=== PATIENT | female | born 1960 | race Caucasian/White ===

== ENCOUNTER 2019-08-20 05:33 | Day surgery (SDC) ==
--- NOTE | 2019-08-08 17:35 | EKG Report ---
Test Performed on : 08/08/2019 5:17:39 PM Test Reason : PAT Blood Pressure : / mmHG Vent. Rate : 081 BPM Atrial Rate : 081 BPM P-R Int : 134 ms QRS Dur : 088 ms QT Int : 344 ms P-R-T Axes : 074 071 042 degrees QTc Int : 399 ms Normal sinus rhythm. Normal ECG When compared with ECG of 26-JUL-2018 08:32, No significant change was found Confirmed by Suman TERRELL, Kee Jimenez ([id number]) on 08/10/2019 6:58:31 AM
[2019-08-08 17:47] LABS: URINE SOURCE CLEAN CATCH
[2019-08-08 17:49] LABS: BILIRUBIN URINE NEGATIVE (NEGATIVE); BLOOD URINE TRACE (NEGATIVE); COLOR YELLOW; GLUCOSE URINE NEGATIVE (NEGATIVE); KETONE URINE NEGATIVE (NEGATIVE); LEUKOCYTES URINE MODERATE (NEGATIVE); NITRITE URINE NEGATIVE (NEGATIVE); PROTEIN URINE NEGATIVE (NEGATIVE); SP GRAVITY URINE 1.013; TURBIDITY URINE CLEAR (CLEAR); UR EPITHELIAL CELLS <10 /HPF (<10); URINE BACTERIA NEGATIVE /HPF; URINE RBC <10 /HPF (<10); UROBILINOGEN URINE NORMAL (NORMAL)
[2019-08-08 17:51] LABS: BASO# 0.03 X1000 (0.0-0.2); BASO% 0.5 % (0.0-0.8); EOS# 0.17 X1000 (0.0-0.7); EOS% 2.8 % (0.0-10.0); HEMATOCRIT 39.7 % (37.0-47.0); HEMOGLOBIN 12.9 g/dL (12.0-16.0); LYMPH% 24.8 % (20.5-51.1); MCH 31.3 PG (27-31); MCHC 32.5 g/dL (33-37); MCV 96.4 FL (81-99); MONO# 0.51 X1000 (0.11-0.59); MONO% 8.4 % (1.7-9.3); MPV 9.7 FL (7.4-10.4); NEUT# 3.84 X1000 (1.4-6.5); NEUT% 63.5 % (42.2-75.2); PLT 272 X1000 (130-400); RBC 4.12 XMIL (4.2-5.4); RDW 12.3 % (11.5-14.5); WBC 6.05 X1000 (4.8-10.8)
[2019-08-08 17:55] LABS: INR 0.95; PROTIME 12.8 Seconds (11.0-16.0)
[2019-08-08 17:56] LABS: PTT 25.9 Seconds (22.3-41.8)
[2019-08-08 18:11] LABS: AGAP 10; ALBUMIN 4.3 g/dL (3.5-5.0); BUN 23 mg/dL (8-22); CALCIUM 9.8 mg/dL (8.8-10.2); CHLORIDE 101 mmol/L (98-107); COSMO 279; CREATININE 0.7 mg/dL (0.5-0.9); ESTIMATED GFR > 60; GLUCOSE 99 mg/dL (70-104); POTASSIUM 3.7 mmol/L (3.5-5.1); SODIUM 138 mmol/L (136-145); TCO2 27 mmol/L (25-35)
[2019-08-20] MEDS ORDERED: REGLAN ONE (06:04)
[2019-08-20] MEDS ORDERED: COLACE ONE (06:04)
[2019-08-20] MEDS ORDERED: PEPCID ONE (06:04)
[2019-08-20] MEDS ORDERED: LYRICA ONE ×2 (06:05→06:18)
[2019-08-20] MEDS ORDERED: KEFZOL 1 GM/D5W 1 GM/50 ML IVPB ONE ×2 (06:05→06:06)
[2019-08-20] MEDS ORDERED: LR 1,000 ML ONE (06:05)
[2019-08-20] MEDS ORDERED: XYLOCAINE-MPF 2% ONE (06:38)
[2019-08-20] MEDS ORDERED: DIPRIVAN 1% ONE ×4 (06:38→08:39)
[2019-08-20] MEDS ORDERED: DURAMORPH ONE (06:39)
[2019-08-20] MEDS ORDERED: TORADOL ONE (06:39)
[2019-08-20] MEDS ORDERED: VANCOMYCIN ONE (06:39)
[2019-08-20] MEDS ORDERED: SODIUM CHLORIDE 0.9% ONE (06:39)
[2019-08-20] MEDS ORDERED: EXPAREL 1.3% ONE (06:39)
[2019-08-20] MEDS ORDERED: MARCAINE 0.25% PF ONE (06:39)
[2019-08-20] MEDS ORDERED: QUELICIN (DOSE) ONE (06:43)
[2019-08-20] MEDS ORDERED: FENTANYL ONE (07:03)
[2019-08-20] MEDS: CYKLOKAPRON 1,000 MG/NS 2,000 MG/200 ML IVPB ONE ×2 (07:15→08:36)
[2019-08-20 08:10] LABS: URINE SOURCE CATH
[2019-08-20 08:13] LABS: BILIRUBIN URINE NEGATIVE (NEGATIVE); BLOOD URINE NEGATIVE (NEGATIVE); COLOR YELLOW; GLUCOSE URINE NEGATIVE (NEGATIVE); KETONE URINE NEGATIVE (NEGATIVE); LEUKOCYTES URINE NEGATIVE (NEGATIVE); NITRITE URINE NEGATIVE (NEGATIVE); PH URINE 5.5; PROTEIN URINE NEGATIVE (NEGATIVE); SP GRAVITY URINE 1.022; TURBIDITY URINE CLEAR (CLEAR); UROBILINOGEN URINE NORMAL (NORMAL)
[2019-08-20 08:14] LABS: UR EPITHELIAL CELLS <10 /HPF (<10); URINE BACTERIA NEGATIVE /HPF; URINE RBC <10 /HPF (<10); URINE WBC <10 /HPF (<10)
[2019-08-20] MEDS ORDERED: DECADRON ONE (08:42)
[2019-08-20] MEDS ORDERED: ZOFRAN ONE (08:42)
[2019-08-20] MEDS ORDERED: OFIRMEV 1000 MG/ISOTONIC SOLN 1,000 MG/100 ML BOTTLE ONE (08:48)
[2019-08-20] MEDS ORDERED: EPHEDRINE ONE (09:03)
--- NOTE | 2019-08-20 09:37 | OPERATIVE NOTE ---
PROCEDURE DATE: 08/20/2019 PREOPERATIVE DIAGNOSIS: Right knee degenerative joint disease. POSTOPERATIVE DIAGNOSIS: Right knee degenerative joint disease. PROCEDURE PERFORMED: Right total knee arthroplasty using a [employer] size 4 femoral component, a size 4 tibial base plate, an 11 mm articular insert, and a 32 mm patellar component. ANESTHESIA: Spinal. SURGEON: Urbano Martinez M.D. TERRAPIN FISHER: CHAD Perez. SECOND TERRAPIN FISHER: CHAD Nugent. COMPLICATIONS: None. BLOOD LOSS: Minimal. TOURNIQUET TIME: Approximately an hour. DESCRIPTION OF PROCEDURE: The patient was brought to the operative suite and placed in the supine position. After successful administration of spinal anesthesia, a well-padded tourniquet was placed on the right proximal thigh, and the right lower extremity was prepped and draped in the usual sterile fashion. The leg was exsanguinated. Tourniquet was insufflated to 350 torr. A longitudinal incision was made beginning at the superior pole of the patella, and extending distally to the tibial tuberosity. The medial arthrotomy was then made with the medial capsule elevated off the medial tibial plateau. The ACL, PCL, medial meniscus, and lateral meniscus were excised. A drill was entered into the distal femur. Intramedullary guide was placed. Distal cutting block was pinned into place. Distal cut was made with oscillating saw. The marginal osteophytes were removed with a rongeur. Attention was directed to the tibia. A drill was entered in the center of the tibia. Intramedullary guide was placed. Alignment checked with drop corazon, referencing off the anterior cortex tibia and the second ray of the foot, and taking 4 mm off the low side of the tibia, which in this case was medially. The tibial cutting block was pinned into place. The articular surface of the tibial plateau was removed with the oscillating saw. Marginal osteophytes were removed with a rongeur. Extension gap was balanced at 11 mm. Therefore, the flexion gap was set to 20 mm, and then once the rotation was set, the femur was sized to a size 4. A size 4 guide was [address]. The anterior cuts, chamfer cuts, and posterior condylar cuts were made with the oscillating saw. Marginal osteophytes were removed with a rongeur. Box cutting block was pinned into place. Box cut was made with box osteotome and oscillating saw. Posterior condylar osteophytes were removed with the curved osteotome and rongeur. Hemostasis was obtained with electrocautery. Attention was then directed to the tibia. The tibia was sized to a size 4. A size 4 guide was used to drill the pin punch. The tibial trial, femoral trial, and 11 mm articular insert were placed and taken through range of motion and found to have excellent alignment, balancing, and range of motion. Attention was directed to the patella. Then, 9 mm of the articular surface of the patella were removed with the oscillating saw. The patella sized to size 32. A size 32 guide was used to drill peg holes. The lateral facet was chamfered 30 to 45 degrees. Patella trial was placed, taken through range of motion, and found have excellent patella tracking. All trials were then removed. The knee was copiously irrigated and dried, being certain all bone debris was removed. The tibial component, femoral component, and patellar component were cemented into place, excess cement being removed with a [place]. Once the cement had hardened, excess cement was again removed with an osteotome. The knee was again copiously irrigated and dried, being certain all bone and cement debris were removed. The trial articular insert was removed. The tourniquet was deflated. Hemostasis was obtained with electrocautery. The knee was copiously infiltrated with Exparel, including posterior capsule, anterior capsule, medial and lateral collateral ligaments, anterior musculature, and subcutaneous tissue. The definitive 11 mm articular insert was locked into place. The medial arthrotomy was closed with #1 Vicryl. The skin edge was approximated with 2-0 Vicryl. The skin was closed with 2-0 Vicryl and then Prineo. A sterile dressing was applied. The patient tolerated the procedure well without complications. At the end of the procedure, all counts were correct. The patient was transferred to the recovery room in stable condition. cc: Urbano Martinez MD
[2019-08-20] MEDS ORDERED: NS 1,000 ML ONE (10:00)
[2019-08-20] MEDS ORDERED: OXY IR PO PRN ×2 (10:45)
[2019-08-20] MEDS ORDERED: ZOFRAN IV PRN (10:45)
[2019-08-20] MEDS ORDERED: ZOFRAN ODT PO PRN (10:45)
[2019-08-20] MEDS ORDERED: NS 1,000 ML IV SCH (10:45)
[2019-08-20] MEDS ORDERED: AMBIEN PO PRN (10:45)
[2019-08-20] MEDS ORDERED: MORPHINE IV PRN ×3 (10:45)
[2019-08-20] MEDS: TYLENOL PO SCH ×2 (15:03→21:47)
[2019-08-20] MEDS: KEFZOL 1 GM/D5W 1 GM/50 ML IVPB IV SCH ×2 (15:03→22:39)
[2019-08-20] MEDS: ULTRAM PO SCH ×2 (15:04→21:46)
[2019-08-20] MEDS: COLACE PO SCH (21:46)
[2019-08-20] MEDS: LYRICA PO SCH (21:48)
[2019-08-20] MEDS: PERIDEX MT SCH (21:48)
[2019-08-21] MEDS: ULTRAM PO SCH ×2 (02:31→08:33)
[2019-08-21] MEDS: TYLENOL PO SCH ×2 (02:32→08:32)
[2019-08-21] MEDS ORDERED: SYNTHROID PO SCH (07:00)
[2019-08-21 07:08] LABS: HEMATOCRIT 32.9 % (37.0-47.0); HEMOGLOBIN 10.3 g/dL (12.0-16.0)
[2019-08-21 07:27] LABS: AGAP 7; BUN 11 mg/dL (8-22); CALCIUM 8.2 mg/dL (8.8-10.2); CHLORIDE 107 mmol/L (98-107); COSMO 282; CREATININE 0.5 mg/dL (0.5-0.9); ESTIMATED GFR > 60; GLUCOSE 122 mg/dL (70-104); POTASSIUM 3.9 mmol/L (3.5-5.1); SODIUM 141 mmol/L (136-145); TCO2 27 mmol/L (25-35)
[2019-08-21] MEDS: PERIDEX MT SCH (08:31)
[2019-08-21] MEDS: COLACE PO SCH (08:32)
[2019-08-21] MEDS: LYRICA PO SCH (08:32)
[2019-08-21] MEDS ORDERED: MOBIC PO SCH (09:00)
[2019-08-21] MEDS ORDERED: CELEXA PO SCH (09:00)
[2019-08-21] MEDS ORDERED: PEPCID PO SCH (09:00)
[2019-08-21] MEDS ORDERED: DECADRON IV ONE (09:00)
[2019-08-21] MEDS ORDERED: ASPIRIN PO SCH (09:00)
[2019-08-21] MEDS ORDERED: PATIENT'S OWN MED PO SCH (09:00)
[2019-08-21] MEDS ORDERED: PATIENT'S OWN MED TOP SCH (09:00)
--- NOTE | 2019-08-21 13:43 | DISCHARGE SUMMARY ---
ADMISSION DATE: 08/20/2019 DISCHARGE DATE: 08/21/2019 DISCHARGE DIAGNOSIS: Right knee degenerative joint disease status post right total knee arthroplasty. DISCHARGE MEDICATIONS: See discharge medication list. DISPOSITION: The patient discharged home with home health physical therapy. Instructed to return for any signs or symptoms of infection or deep venous thrombosis. Instructed to return to see Dr. Martinez next . HOSPITAL COURSE ON DAY OF ADMISSION: Patient underwent a right total knee arthroplasty. Her postoperative course was unremarkable. At discharge she is afebrile, tolerating a regular diet, ambulating well with physical therapy. Her wound is clean, dry, intact without sign of infection. She has walked 250 feet. She is discharged home in stable condition and instructed to follow up as described above. cc: Urbano Martinez MD
[2019-08-21 13:45] VITALS: BP 120/67
== END 2019-08-21 15:28 | disposition home or self-care (01) ==
LOC: 4N 05:33 → OR 05:33
PROVIDERS: ATTEND Orthopaedic Surgery